=== PATIENT | male | born 1990 | race Caucasian/White ===

== ENCOUNTER 2022-05-08 12:26 | Emergency (ER) | payer BC, SELFPAY ==
--- NOTE | ~2022-05-08 | XR_ITS ---
CORRECTED REPORT Images and report moved from accession [id number] to [id number]. This report was recreated on 05/11/2022 by . Original report was [employer] EXAM: XR wrist LT min 3V DATE: 05/08/2022 15:51 HISTORY: left wrist pain after a fall 2 months ago . COMPARISON: None available. FINDINGS: Normal mineralization. No fracture or dislocation. No lytic or blastic lesion. Joint spaces are maintained. No erosion or periosteal change. Soft tissues within normal limits. IMPRESSION: No acute osseous finding in the left wrist. Reviewed, dictated and finalized at location K. [employer] MTDD
[2022-05-08 14:59] VITALS: BP 129/80; PULSE 58; RESP 18; TEMP 36.9; O2SAT 100
--- NOTE | 2022-05-08 15:43 | ED.UPPEXIN ---
HPI - Extremity Injury (Upper) General Chief Complaint: Extremity Injury, Upper Stated Complaint: bilateral wrist pain Source: patient Mode of arrival: ambulatory Limitations: no limitations History of Present Illness HPI narrative: 31-year-old male presents to [facility] with complains of increasing left wrist pain since yesterday. Patient reports that he fell on outstretched hands back in February when he was jogging in tripped and fell. Patient reports that his left wrist pain became worse yesterday after he was carrying laundry. Patient has been taking [id number] ibuprofen which has not been helping his pain. Patient denies swelling, erythema, bruising, numbness or tingling. complaint: injury to: left Other Extremity Injury: Left: wrist Handedness: right Relieving factors: none Exacerbating factors: movement of extremity Associated symptoms: denies other symptoms Related Data Home Medications Medication Instructions Recorded Confirmed venlafaxine 75 mg capsule,extended 75 mg PO DAILY 05/08/22 05/08/22 release 24 hr Allergies Allergy/AdvReac Type Severity Reaction Status Date / Time No Known Allergies Allergy Verified 05/08/22 15:04 Review of Systems Constitutional: Constitutional: Denies chills, Denies fatigue, Denies fever(s) and Denies weakness ENT: Denies vertigo and Denies dizziness Respiratory: Respiratory: Denies cough, Denies dyspnea and Denies wheezing Gastrointestinal: Gastrointestinal: Denies diarrhea, Denies nausea and Denies vomiting Musculoskeletal: Musculoskeletal: Denies back pain, Reports arthralgias and Denies joint swelling Integumentary/Breasts: Skin/Breast: Denies pruritus and Denies rash Allergic/Immunologic: Allergic/Immunologic: Denies lip swelling, Denies throat swelling, Denies tongue swelling and Denies wheezing PMFSH Comments At time of signature, I agree with nursing past medical, surgical, social and family history. There is no relevant family history pertinent to the presenting complaint. Exam Const: General: healthy appearing, no acute distress and alert Nutritional Appearance: well nourished Orientation/consciousness: patient oriented x3 Limitations: no limitations Resp: Effort & Inspection: normal respiratory effort and not labored Auscultation: clear to auscultation bilaterally, no crackles, no rales, no rhonchi and no wheezes Cardio: Rate: regular rate Rhythm: regular rhythm Heart sounds: no murmurs Skin: General skin exam: normal color Rashes: no rashes Wounds: no wounds Neuro: General: patient oriented x3 Speech: normal speech Gait exam (Neuro): Normal gait present Extrem: General: normal to inspection Other: No swelling, bruising or erythema noted to left wrist. There is increased pain noted with range of motion to left wrist. The L wrist is without obvious asymmetry or deformity when compared to the R wrist. NO surface trauma, open wounds, swelling or obvious deformity. No overlying erythema or warmth. No bony crepitus or focal area of tender to palpate. Motor/sensory function of ulnar, radial, median nerves intact. Ulnar and radial pulses intact. Negative Phalen's test/Tinel's sign. Negative Kalpana test. Psych: Affect: normal affect Attitude: cooperative Course Course Level of Care: Express Care Visit Vital Signs Vital signs: Vital Signs Temperature 36.9 C 05/08/22 14:59 Pulse Rate 58 L 05/08/22 14:59 Respiratory Rate 18 05/08/22 14:59 Blood Pressure 129/80 05/08/22 14:59 Pulse Oximetry 100 05/08/22 14:59 Oxygen Delivery Room Air 05/08/22 14:59 Temperature 36.9 C 05/08/22 14:59 Pulse Rate 58 L 05/08/22 14:59 Respiratory Rate 18 05/08/22 14:59 Blood Pressure 129/80 05/08/22 14:59 Pulse Oximetry 100 05/08/22 14:59 Oxygen Delivery Room Air 05/08/22 14:59 MDM - Extremity Injury (Upper) MDM Narrative Medical decision making narrative: Discuss left wrist x-ray with patient.
== END 2022-05-08 16:18 | disposition home or self-care (01) ==
PROVIDERS: Emergency Provider Nurse Practitioner Family
DX: M25.532 Pain in left wrist (principal); F41.9 Anxiety disorder, unspecified; F32.A Depression, unspecified
CPT/HCPCS: 73110; 99203; G0463

== ENCOUNTER 2023-03-22 13:14 | Emergency (ER) | payer BC, SELFPAY ==
[2023-03-22 13:28] VITALS: BP 131/81; PULSE 68; RESP 16; TEMP 36.6; O2SAT 100
--- NOTE | 2023-03-22 13:28 | ED.EAR ---
HPI - Ear Problem General Chief complaint: Ear Stated complaint: Lt Ear Irritation Time Seen by Provider: 03/22/23 13:28 Source: patient Mode of arrival: ambulatory Limitations: no limitations History of Present Illness HPI Narrative: 32 yo M presents with c/o pain to bilatearal ears, worse to L ear. Started yesterday after getting off plane from [place]. Denies drainage. No hearing change. All systems reviewed and negative except as noted above. Related Data Home Medications Medication Instructions Recorded Confirmed venlafaxine 75 mg capsule,extended 75 mg PO DAILY 05/08/22 03/22/23 release 24 hr Allergies Allergy/AdvReac Type Severity Reaction Status Date / Time No Known Allergies Allergy Verified 03/22/23 13:24 Review of Systems Review of Systems: CONSTITUTIONAL: Denies fever, chills, or sweats. EYES: Denies visual changes, redness, or discharge. ENT: Denies rhinorrhea, congestion, sore throat . Reports Pain to bilateral ears. CARDIOVASCULAR: Denies chest pain, palpitations, or edema. RESPIRATORY: Denies cough or dyspnea. GASTROINTESTINAL: Denies abdominal pain, nausea, vomiting, or diarrhea. GENITOURINARY: Denies dysuria or hematuria. SKIN: Denies rash or itching. MUSCULOSKELETAL: Denies back pain, joint pain, or myalgia. NEUROLOGIC: Denies headache, numbness, or weakness. PSYCHIATRIC: Denies anxiety or depression. All other systems reviewed are negative, except as documented in HPI. PMFSH Past Medical History Medical History Bilateral wrist pain Contusion of wrist, left De Quervain's tenosynovitis, left Social History Social History Smoking status: Never smoker Alcohol intake: current Substance use type: marijuana Living arrangements: with family Gender identity (if verbalized by the patient): Male Comments At time of signature, agree with nursing past medical, surgical, social and family history. There is no relevant family history pertinent to the presenting complaint. Exam Narrative: GENERAL: This is a well-nourished, well-developed patient, in no apparent distress. HEAD: normocephalic, atraumatic. EYES: PERRL. Sclera clear/white. Vision is grossly intact. EARS: External ears normal, auditory canals clear and without drainage, clear fluids to bilateral TMs with multiple air bubbles, worse to L ear NOSE: External nose normal NECK: Neck supple, non-tender without lymphadenopathy, masses or thyromegaly. CARDIOVASCULAR: Regular rate and rhythm without murmurs, gallops, or rubs. RESPIRATORY: Clear to auscultation. Breath sounds equal bilaterally. No wheezes, rales, or rhonchi. SKIN: warm, Dry, intact with no suspicious lesions or rash, good texture and turgor. NEURO: awake, alert, and oriented to person, place and time. There were no obvious focal neurologic abnormalities. EXTREMITIES: No joint tenderness, effusion, or edema noted. Course Course Level of Care: Express Care Visit Vital Signs Vital signs: Vital Signs Temperature 36.6 C 03/22/23 13:28 Pulse Rate 68 03/22/23 13:28 Respiratory Rate 16 03/22/23 13:28 Blood Pressure 131/81 03/22/23 13:28 Pulse Oximetry 100 03/22/23 13:28 Oxygen Delivery Room Air 03/22/23 13:28 Temperature 36.6 C 03/22/23 13:28 Pulse Rate 68 03/22/23 13:28 Respiratory Rate 16 03/22/23 13:28 Blood Pressure 131/81 03/22/23 13:28 Pulse Oximetry 100 03/22/23 13:28 Oxygen Delivery Room Air 03/22/23 13:28 reviewed Medical Decision Making MDM Narrative Medical decision making narrative: Patient is aware of diagnosis, understands and agrees to treatment plan. Anticipatory guidance given. Patient agrees to follow-up as directed and is aware of reasons to seek care at the emergency department. Portions of this record may have been created with voice recognition software [employer]
== END 2023-03-22 13:38 | disposition home or self-care (01) ==
PROVIDERS: Emergency Provider Nurse Practitioner Family
DX: T70.0XXA Otitic barotrauma, initial encounter (principal); X58.XXXA Exposure to other specified factors, initial encounter; F12.90 Cannabis use, unspecified, uncomplicated
CPT/HCPCS: 99213; G0463